=== PATIENT | female | born 2000 | race Two or more races ===

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

== ENCOUNTER 2022-01-03 03:49 | Emergency (ER) | payer MEDICAID ==
[~2022-01-03] VITALS: Ht 154.9 cm; Wt 77.1 kg
[2022-01-03 05:50] LABS: Basophils # (auto) 0 10 ^3/uL (0-0.2); Basophils % (auto) 0.1 % (0.0-2.0); Eosinophils # (auto) 0.1 10 ^3/uL (0-0.8); Eosinophils % (auto) 0.6 % (0.0-7.0); Hematocrit 42.3 % (36.0-46.0); Hemoglobin 13.9 g/dL (12.2-16.2); Lymphocytes # (auto) 1.1 10 ^3/uL (0.4-5.4); Lymphocytes % (auto) 9.4 % (10.0-50.0); Monocytes # (auto) 0.6 10 ^3/uL (0-1.3); Monocytes % (auto) 5.5 % (0.0-12.0); Neutrophils # (auto) 9.7 10 ^3/uL (1.6-8.6); Neutrophils % (auto) 84.4 % (37.0-80.0); Red Blood Cells 4.65 10^6/uL (4.0-5.20); White Blood Cell 11.5 10^3/uL (4.4-10.8)
[2022-01-03] MEDS ORDERED: ONDANSETRON HCL 4 MG/2 ML VIAL IV ONE (06:00)
[2022-01-03 06:20] LABS: Albumin 3.9 g/dL (3.4-5.0); Calcium 8.8 mg/dL (8.5-10.1); Magnesium 2.3 mg/dL (1.6-2.6)
[2022-01-03 06:23] LABS: Bilirubin, Total 0.2 mg/dL (0.2-1.0)
[2022-01-03 06:48] LABS: Salicylate < 1.7 mg/dL (2.8-20.0)
[2022-01-03 06:49] LABS: Acetaminophen < 2.0 ug/mL (10-30)
[2022-01-03 06:53] VITALS: BP 116/69
== END 2022-01-03 07:53 | disposition home or self-care (01) ==
LOC: EDSEX 03:49 → ER 03:49 → EDBD 03:49 → ER 07:53
DX: T40.411A Poisoning by fentanyl or fentanyl analogs, accidental (unintentional), initial encounter (principal); Y92.89 Other specified places as the place of occurrence of the external cause
CPT/HCPCS: 36415; 80053; 80320; 80329; 83735; 85025; 93005; 96374; 99284; J2405

== ENCOUNTER 2022-04-22 06:12 | Emergency (ER) | payer MEDICAID ==
[~2022-04-22] VITALS: Ht 162.6 cm; Wt 72.6 kg
[2022-04-22] MEDS ORDERED: SODIUM CHLORIDE 0.9% 1,000 ML IV ONE ×2 (07:00)
[2022-04-22 07:39] LABS: Basophils # (auto) 0 10 ^3/uL (0-0.2); Basophils % (auto) 0.2 % (0.0-2.0); Eosinophils # (auto) 0 10 ^3/uL (0-0.8); Eosinophils % (auto) 0.2 % (0.0-7.0); Hematocrit 41.5 % (36.0-46.0); Hemoglobin 13.9 g/dL (12.2-16.2); Lymphocytes # (auto) 1.6 10 ^3/uL (0.4-5.4); Mean Corpuscular Hemoglobin 30.2 pg (28.0-32.0); Mean Corpuscular Hgb Conc. 33.6 g/dL (32.0-36.0); Mean Corpuscular Volume 90.1 fL (80.0-100.0); Monocytes # (auto) 0.5 10 ^3/uL (0-1.3); Monocytes % (auto) 3.7 % (0.0-12.0); Neutrophils # (auto) 12.4 10 ^3/uL (1.6-8.6); Neutrophils % (auto) 84.9 % (37.0-80.0); Red Cell Distribution Width 13.6 % (11.8-14.3); White Blood Cell 14.6 10^3/uL (4.4-10.8)
[2022-04-22 07:57] LABS: Alanine Aminotransferase 32 U/L (13-56); Albumin 3.6 g/dL (3.4-5.0); Anion Gap 12 (5-15); Aspartate Aminotransferase 31 U/L (15-37); BUN/Creatinine Ratio 6.5; Blood Alcohol < 3.0 mg/dL (0-5); Blood Urea Nitrogen 8 mg/dL (7-18); Calcium 8.2 mg/dL (8.5-10.1); Carbon Dioxide 22 mmol/L (21-32); Chloride 107 mmol/L (98-107); GFR African American 72 mL/min; GFR Non-African American 59 mL/min; Glucose 129 mg/dL (74-106); Sodium 141 mmol/L (136-145)
[2022-04-22 07:58] LABS: Salicylate < 1.7 mg/dL (2.8-20.0)
[2022-04-22 07:59] LABS: Alkaline Phosphatase 62 U/L (45-117); Bilirubin, Total 0.2 mg/dL (0.2-1.0); Total Protein 7.8 g/dL (6.4-8.2)
[2022-04-22 08:03] LABS: Acetaminophen < 2.0 ug/mL (10-30)
[2022-04-22 09:03] LABS: Urine Bacteria FEW /hpf (None Seen); Urine Blood Negative /uL (Negative); Urine Hyaline Cast FEW /lpf (0 - 2); Urine Mucus FEW (None Seen); Urine Specific Gravity 1.018 (1.001-1.035); Urine WBC 16 /hpf (0 - 5)
[2022-04-22 09:21] LABS: Amphetamine Screen, Urine NEGATIVE (NEGATIVE); Barbiturate Scree,Urine NEGATIVE (NEGATIVE); Benzodiazephine Screen, Urine POSITIVE (NEGATIVE); Cannabinoid Screen, Urine POSITIVE (NEGATIVE); Cocaine Screen, Urine NEGATIVE (NEGATIVE); Opiate Scree,Urine NEGATIVE (NEGATIVE); Phencyclidine Screen, Urine NEGATIVE (NEGATIVE)
[2022-04-22] MEDS ORDERED: ONDANSETRON HCL 4 MG/2 ML VIAL IV ONE (10:45)
[2022-04-22 12:08] VITALS: BP 110/50
== END 2022-04-22 12:16 | disposition home or self-care (01) ==
LOC: ER 06:12 → EDBD 06:12 → ER 12:14
DX: T40.411A Poisoning by fentanyl or fentanyl analogs, accidental (unintentional), initial encounter (principal); F17.210 Nicotine dependence, cigarettes, uncomplicated; F12.10 Cannabis abuse, uncomplicated; R53.1 Weakness; X58.XXXA Exposure to other specified factors, initial encounter; Y93.89 Activity, other specified; Y92.89 Other specified places as the place of occurrence of the external cause; Y99.8 Other external cause status
CPT/HCPCS: 36415; 71045; 80053; 80307; 80320; 80329; 81001; 85025; 93005; 96361; 96374; 99285; J2405; J7030

== ENCOUNTER 2022-08-05 10:14 | Emergency (ER) | payer MEDICAID ==
[~2022-08-05] VITALS: Ht 170.2 cm; Wt 91.0 kg
[2022-08-05 10:48] LABS: Basophils # (auto) 0 10 ^3/uL (0-0.2); Basophils % (auto) 0.2 % (0.0-2.0); Eosinophils # (auto) 0.1 10 ^3/uL (0-0.8); Eosinophils % (auto) 0.6 % (0.0-7.0); Hematocrit 36.1 % (36.0-46.0); Hemoglobin 11.7 g/dL (12.2-16.2); Lymphocytes % (auto) 14.6 % (10.0-50.0); Mean Corpuscular Hemoglobin 29.5 pg (28.0-32.0); Mean Corpuscular Hgb Conc. 32.3 g/dL (32.0-36.0); Mean Corpuscular Volume 91.3 fL (80.0-100.0); Monocytes # (auto) 0.7 10 ^3/uL (0-1.3); Monocytes % (auto) 5.2 % (0.0-12.0); Neutrophils # (auto) 10.7 10 ^3/uL (1.6-8.6); Neutrophils % (auto) 79.4 % (37.0-80.0); Red Blood Cells 3.96 10^6/uL (4.0-5.20); Red Cell Distribution Width 13.3 % (11.8-14.3); White Blood Cell 13.4 10^3/uL (4.4-10.8)
[2022-08-05 11:16] LABS: Acetaminophen < 2.0 ug/mL (10-30); Salicylate < 1.7 mg/dL (2.8-20.0)
[2022-08-05 12:00] LABS: Albumin 3.2 g/dL (3.4-5.0); Potassium 3.1 mmol/L (3.5-5.1)
[2022-08-05 12:02] LABS: BUN/Creatinine Ratio 11.3
[2022-08-05 12:05] LABS: Bilirubin, Total 0.2 mg/dL (0.2-1.0); Total Protein 6.3 g/dL (6.4-8.2)
[2022-08-05 13:30] VITALS: BP 105/71
== END 2022-08-05 13:52 | disposition home or self-care (01) ==
LOC: EDBD 10:14 → ER 10:14
DX: T40.0X1A Poisoning by opium, accidental (unintentional), initial encounter (principal)
CPT/HCPCS: 36415; 80053; 80329; 85025